=== PATIENT | male | born 1985 | race Caucasian/White ===

== ENCOUNTER 2018-01-30 11:10 | Inpatient (IN) ==
[2018-01-30] MEDS ORDERED: Isovue-370 500 ML INFUS..BTL IV ONE (11:22)
[2018-01-30] MEDS ORDERED: 0.9 % Sodium Chloride 1,000 ML ONE (11:26)
--- NOTE | 2018-01-30 11:28 | Emergency Department Note ---
Disposition Clinical Impression: Syncope due to orthostatic hypotension, Elevated CK Hypotension Qualifiers: Hypotension type: unspecified hypotension type Qualified Code(s): I95.9 - Hypotension, unspecified Disposition: Admitted As Inpatient Condition: Undetermined Referrals: NONE,PCP [Primary Care Provider] - Forms: ED Satisfaction Letter Time of Disposition: 15:28 General Adult HPI - General Chief complaint: ED Syncope Stated complaint: syncopal episode Time Seen by Provider: 01/30/18 11:15 Source: patient, other Mode of arrival: private vehicle Limitations: no limitations Nursing Notes Reviewed: Yes Vital Signs Reviewed: Yes - History of Present Illness HPI Narrative: 32-year-old male with history of hepatitis C, osteoporosis, IV drug abuse arrives to the emergency department after a syncopal episode this morning. The patient states that he recently started using IV methamphetamine with a dirty needle for roughly 4 days. The patient states that yesterday he started feeling very ill and actually syncopized for instructed on the ground. No LOC. The patient remembers the event. The patient was noted to be hypotensive this morning with a systolic blood pressure in the 60s and 50s. Upon arrival to our emergency the patient was 80s systolic. He admits to mild dyspnea that is not unusual for you and mild crampy RUQ abdominal pain that is related to his previous hepatitis. He denies any other complaints. Pain Scale: 6 - Related Data Home Medications Medication Instructions Recorded Confirmed Citalopram [CeleXA] 20 mg PO DAILY 02/20/17 01/30/18 Albuterol Neb [Proventil Neb] 2.5 mg IH QID PRN 01/30/18 01/30/18 Benzonatate [Benzonatate] 100 mg PO TID PRN 01/30/18 01/30/18 Fluticasone Propionate [Flovent 1 puff IH BID 01/30/18 01/30/18 Diskus] Naproxen [Naprosyn] 500 mg PO BID 01/30/18 01/30/18 Omeprazole [PriLOSEC] 20 mg PO DAILY 01/30/18 01/30/18 Previous Rx's Medication Instructions Recorded Albuterol Sulfate [Albuterol 2 puff IH Q6HR PRN #1 hfa.aer.ad 08/28/17 Inhaler] Allergies Allergy/AdvReac Type Severity Reaction Status Date / Time No Known Allergies Allergy Verified 01/10/18 13:02 All systems ED: reviewed and negative except as stated. Constitutional: Reports: chills, weakness. Denies: fever ENT ED: Denies: congestion Cardiovascular: Reports: dyspnea on exertion, syncope. Denies: chest pain, edema Respiratory: Reports: dyspnea Gastrointestinal: Reports: abdominal pain, nausea, diarrhea. Denies: vomiting, constipation, hematemesis, melena, hematochezia Genitourinary: Denies: urgency, dysuria Musculoskeletal: Reports: myalgia. Denies: back pain, neck pain, arthralgia Integumentary: Denies: rash, abrasion Neurological: Denies: headache, weakness, numbness, paresthesias, confusion Past Medical History - Past Medical History Attestation: Yes The following information was validated with the patient. Source: patient, old records reviewed, obtained from family Medical history: Reports: hepatitis, osteoporosis Psychiatric history: Reports: anxiety, depression - Social History Smoking Status: Former smoker Smokeless Tobacco Status: No Alcohol use: Reports: none Drug use: Reports: methamphetamine, IV Drug Use Physical Exam - General Limitations: no limitations General appearance: alert, in no apparent distress - Head Head exam: atraumatic, normocephalic, normal inspection - Eye Eye exam: Present: normal appearance, PERRL, EOMI - ENT ENT exam: normal exam, normal oropharynx, mucous membranes moist - Neck Neck exam: Present: normal inspection, full ROM, trachea midline - Chest Chest inspection: Present: normal inspection, symmetric chest wall rise - Respiratory Respiratory exam: Present: other (Coarse breath sounds) - Cardiovascular Cardiovascular exam: Present: regular rate, normal rhythm, normal heart sounds - Abdominal Exam Abdominal exam: Present: soft, tenderness (RUQ). Absent: distention, guarding, rebound, rigidity, Ortega's sign, Rovsing's sign, tenderness at McBurney's Point - Extremities Exam Extremities exam: Present: normal inspection, full ROM. Absent: tenderness, pedal edema - Neurological Exam Neurological exam: Present: alert, oriented X3 - Skin Skin exam: Present: warm, dry, intact, normal color Course - Reevaluation(s) Reevaluation #1: BP 106/54 Time: 14:05 Vital Signs Temperature 97.7 F 01/30/18 11:11 Pulse Rate 99 01/30/18 11:11 Respiratory Rate 16 04/15/18 11:11 Blood Pressure 80/51 01/30/18 11:11 O2 Sat by Pulse Oximetry 97 01/30/18 11:11 Temperature 97.7 F 01/30/18 11:11 Pulse Rate 99 01/30/18 11:11 Respiratory Rate 16 01/30/18 11:11 Blood Pressure 80/51 01/30/18 11:11 O2 Sat by Pulse Oximetry 100 01/30/18 11:20 Oxygen Delivery Oxygen Delivery Room Air Medical Decision Making - MDM Narrative Medical decision making narrative: Patient's workup in the emergency department demonstrates an elevated lactic acid. The patient was also found to be hypotensive in the 80s systolic. His blood pressure responded to 3 L of IV fluids with his last systolic blood pressure 106. The patient has been mentating appropriately entire time. The patient is demonstrated to have an acute kidney injury with a GFR of 12. This appears new. The patient has no other obvious signs of infection. He is a mild leukocytosis. He has been afebrile. The patient denies any other complaints at this time. He did have a CT scan of his abdomen and pelvis and as well as a VQ scan of his chest with concern for possible septic emboli. CT of the abdomen and pelvis reveals no acute abnormalities and VQ scan demonstrates low probability for emboli. Patient's chest x-ray demonstrates no acute process. The urinalysis is unremarkable. Patient's lab work reveals a leukocytosis, acute kidney injury. The patient's lactic acid was elevated at 2.8. He was administered 3 L of IV fluids. He states he is feeling better at this time. The patient states she has not been eating or drinking over the course the past few days. The patient does have an elevated creatinine kinase at this time. This is likely the etiology of the patient's acute kidney injury as well as elevation of lactic acid. Accepted by Dr. Amos. - Lab Data Lab results reviewed: Yes I reviewed the patient's lab results. Result diagrams: 01/30/18 11:26 01/30/18 11:26 Lab Results 01/30/18 01/30/18 01/30/18 Range/Units 11:20 11:26 11:26 WBC 12.1 H (4.3-11.1) K/mcL RBC 4.61 (4.19-5.50) M/mcL Hgb 14.1 (12.9-16.9) g/dL Hct 41.4 (37.5-50.1) % MCV 89.8 (83.0-100.0) fL MCH 30.6 (28.0-33.3) pg MCHC 34.1 (31.6-35.5) g/dL RDW 13.1 (11.5-14.5) % Plt Count 374 (140-400) K/mcL MPV 9.4 (9.4-12.4) fL Immature Gran % 1.3 (0-4) % Seg Neutrophils % 65.7 % Lymphocytes % 17.8 % Monocytes % 14.2 % Eosinophils % 0.8 % Basophils % 0.2 % Neutrophils # 8.0 (1.6-8.9) K/mcL Lymphocytes # 2.2 (0.6-4.6) K/mcL Monocytes # 1.7 H (0.0-1.3) K/mcL Eosinophils # 0.1 (0.0-0.6) K/mcL Basophils # 0.0 (0.0-0.2) K/mcL PT 11.4 (9.4-12.1) Seconds INR 1.1 APTT 25.1 L (26.0-36.0) Seconds Sodium 133 L (136-145) mEq/L Potassium 4.2 (3.5-5.1) mEq/L Chloride 98 (98-107) mEq/L Carbon Dioxide 20 L (23-29) mEq/L BUN 39 H (6-20) mg/dL Creatinine 5.53 H (0.70-1.30) mg/dL Est GFR ( Amer) 15 L (> 60) Est GFR (Non-Af Amer) 12 L (> 60) BUN/Creatinine Ratio 7 (6-26) Glucose 107 H (70-105) mg/dL Calculated Osmolality 286 (280-300) Lactic Acid (0.5-2.2) mmol/L Calcium 9.4 (8.6-10.3) mg/dL Magnesium 2.3 (1.6-2.6) mg/dL Total Bilirubin 0.7 (0.3-1.0) mg/dL Direct Bilirubin 0.2 (0.0-0.2) mg/dL Indirect Bilirubin 0.5 (0.0-1.2) mg/dL AST 49 H (13-39) Units/L ALT 115 H (7-52) Units/L Alkaline Phosphatase 132 H (34-104) Units/L Creatine Kinase 937 H (30-223) Units/L Troponin I < 0.03 (< 0.04) ng/mL Serum Total Protein 7.7 (6.4-8.9) g/dL Albumin 4.6 (3.5-5.7) g/dL Globulin 3.1 (2.4-3.5) g/dL Albumin/Globulin Ratio 1.5 (1.1-2.2) Urine Color (Yellow) Urine Clarity (Clear) Urine pH (5.0-8.0) pH Units Ur Specific [place] (1.010-1.025) Urine Protein (Neg-Trace) mg/dL Urine Glucose (UA) (Normal) mg/dL Urine Ketones (Negative) mg/dL Urine Blood (Negative) Urine Nitrite (Negative) Urine Bilirubin (Negative) Urine Urobilinogen (Normal) mg/dL Ur Leukocyte Esterase (Negative) Urine Microscopic RBC (0-3) per hpf Urine Microscopic WBC (0-3) per hpf Ur Squamous Epith Cells (None-Few) per lpf Urine Bacteria (None-Few) per hpf Ur Culture Indicated? (NO) 01/30/18 01/30/18 Range/Units 11:26 14:26 WBC (4.3-11.1) K/mcL RBC (4.19-5.50) M/mcL Hgb (12.9-16.9) g/dL Hct (37.5-50.1) % MCV (83.0-100.0) fL MCH (28.0-33.3) pg MCHC (31.6-35.5) g/dL RDW (11.5-14.5) % Plt Count (140-400) K/mcL MPV (9.4-12.4) fL Immature Gran % (0-4) % Seg Neutrophils % % Lymphocytes % % Monocytes % % Eosinophils % % Basophils % % Neutrophils # (1.6-8.9) K/mcL Lymphocytes # (0.6-4.6) K/mcL Monocytes # (0.0-1.3) K/mcL Eosinophils # (0.0-0.6) K/mcL Basophils # (0.0-0.2) K/mcL PT (9.4-12.1) Seconds INR APTT (26.0-36.0) Seconds Sodium (136-145) mEq/L Potassium (3.5-5.1) mEq/L Chloride (98-107) mEq/L Carbon Dioxide (23-29) mEq/L BUN (6-20) mg/dL Creatinine (0.70-1.30) mg/dL Est GFR ( Amer) (> 60) Est GFR (Non-Af Amer) (> 60) BUN/Creatinine Ratio (6-26) Glucose (70-105) mg/dL Calculated Osmolality (280-300) Lactic Acid 2.8 H (0.5-2.2) mmol/L Calcium (8.6-10.3) mg/dL Magnesium (1.6-2.6) mg/dL Total Bilirubin (0.3-1.0) mg/dL Direct Bilirubin (0.0-0.2) mg/dL Indirect Bilirubin (0.0-1.2) mg/dL AST (13-39) Units/L ALT (7-52) Units/L Alkaline Phosphatase (34-104) Units/L Creatine Kinase (30-223) Units/L Troponin I (< 0.04) ng/mL Serum Total Protein (6.4-8.9) g/dL Albumin (3.5-5.7) g/dL Globulin (2.4-3.5) g/dL Albumin/Globulin Ratio (1.1-2.2) Urine Color Yellow (Yellow) Urine Clarity Cloudy A (Clear) Urine pH 5.5 (5.0-8.0) pH Units Ur Specific [place] 1.016 (1.010-1.025) Urine Protein 30 H (Neg-Trace) mg/dL Urine Glucose (UA) Normal (Normal) mg/dL Urine Ketones Negative (Negative) mg/dL Urine Blood Moderate H (Negative) Urine Nitrite Negative (Negative) Urine Bilirubin Negative (Negative) Urine Urobilinogen Normal (Normal) mg/dL Ur Leukocyte Esterase Negative (Negative) Urine Microscopic RBC 3-5 H (0-3) per hpf Urine Microscopic WBC 5-15 H (0-3) per hpf Ur Squamous Epith Cells Many H (None-Few) per lpf Urine Bacteria None Seen (None-Few) per hpf Ur Culture Indicated? NO (NO) - Radiology Data Radiology results reviewed: Yes I reviewed the patient's radiology results. Chest X-Ray 01/30/18 11:22 IMPRESSION: No acute process. D/ / Juan Bernardo MD / Juan Bernardo MD Interpreting Provider: Juan Bernardo MD Head CT 01/30/18 11:24 IMPRESSION: No acute intracranial abnormality. D/ / Giovanni Fletcher MD / Giovanni Fletcher MD Interpreting Provider: Giovanni Fletcher MD Abdomen/Pelvis CT 01/30/18 12:20 IMPRESSION: No acute abnormality identified. No renal stones. D/ / eYvgeniy Pierson / Yevgeniy Pierson Interpreting Provider: Yevgeniy Pierson Pulmonary Perfusion Imaging 01/30/18 12:30 IMPRESSION: Low probability for pulmonary embolus. D/ / Juan Bernardo MD / Juan Bernardo MD Interpreting Provider: Juan Bernardo MD - EKG Data EKG #1 EKG attestation: Yes I reviewed and interpreted this EKG. EKG results narrative: Heart rate 89 bpm. Normal sinus rhythm. No ST elevation or ST depression noted. EKG similar in appearance to EKG from 2018. No acute changes noted.
[2018-01-30] MEDS: 0.9 % Sodium Chloride 1,000 ML IVC SCH ×4 (11:30→18:12)
[2018-01-30 11:37] LABS: Basophils % 0.2 %; Eosinophils # 0.1 K/mcL (0.0-0.6); Eosinophils % 0.8 %; Hematocrit 41.4 % (37.5-50.1); Hemoglobin 14.1 g/dL (12.9-16.9); Immature Granulocytes % 1.3 % (0-4); Lymphocytes # 2.2 K/mcL (0.6-4.6); Lymphocytes % 17.8 %; Mean Corpuscular HGB Conc 34.1 g/dL (31.6-35.5); Mean Corpuscular Hemoglobin 30.6 pg (28.0-33.3); Mean Corpuscular Volume 89.8 fL (83.0-100.0); Mean Platelet Volume 9.4 fL (9.4-12.4); Monocytes # 1.7 K/mcL (0.0-1.3); Monocytes % 14.2 %; Platelet Count 374 K/mcL (140-400); Red Blood Count 4.61 M/mcL (4.19-5.50); Red Cell Distribution Width 13.1 % (11.5-14.5); Segmented Neutrophils % 65.7 %
[2018-01-30 11:42] LABS: INR 1.1; Prothrombin Time 11.4 Seconds (9.4-12.1)
[2018-01-30 11:45] LABS: Activated Partial Thrombo Time 25.1 Seconds (26.0-36.0)
[2018-01-30 12:01] LABS: Troponin I < 0.03 ng/mL (< 0.04)
[2018-01-30 12:03] LABS: Alanine Aminotransferase 115 Units/L (7-52); Albumin 4.6 g/dL (3.5-5.7); Albumin/Globulin Ratio 1.5 (1.1-2.2); Alkaline Phosphatase 132 Units/L (34-104); Aspartate Amino Transferase 49 Units/L (13-39); BUN/Creatinine Ratio 7 (6-26); Bilirubin,Direct 0.2 mg/dL (0.0-0.2); Bilirubin,Indirect 0.5 mg/dL (0.0-1.2); Bilirubin,Total 0.7 mg/dL (0.3-1.0); Blood Urea Nitrogen 39 mg/dL (6-20); Calcium 9.4 mg/dL (8.6-10.3); Carbon Dioxide 20 mEq/L (23-29); Chloride 98 mEq/L (98-107); Globulin 3.1 g/dL (2.4-3.5); Glucose 107 mg/dL (70-105); Magnesium 2.3 mg/dL (1.6-2.6); Osmolality,Calculated 286 (280-300); Potassium 4.2 mEq/L (3.5-5.1); Sodium 133 mEq/L (136-145); Total Protein 7.7 g/dL (6.4-8.9); eGFR For African Americans 15 (> 60); eGFR For Non-African Americans 12 (> 60)
[2018-01-30] MEDS ORDERED: 0.9 % Sodium Chloride 1,000 ML IVC ONE (13:09)
--- NOTE | 2018-01-30 13:10 | Emergency Department Note ---
Disposition Clinical Impression: Syncope due to orthostatic hypotension, Elevated CK Hypotension Qualifiers: Hypotension type: unspecified hypotension type Qualified Code(s): I95.9 - Hypotension, unspecified Disposition: Admitted As Inpatient Condition: Undetermined General Adult HPI - General Chief complaint: ED Syncope Stated complaint: syncopal episode Time Seen by Provider: 01/30/18 11:15 Source: patient, other Mode of arrival: private vehicle Limitations: no limitations Nursing Notes Reviewed: Yes Vital Signs Reviewed: Yes - History of Present Illness Pain Scale: 6 - Related Data Home Medications Medication Instructions Recorded Confirmed Citalopram [CeleXA] 20 mg PO DAILY 02/20/17 01/30/18 Albuterol Neb [Proventil Neb] 2.5 mg IH QID PRN 01/30/18 01/30/18 Benzonatate [Benzonatate] 100 mg PO TID PRN 01/30/18 01/30/18 Fluticasone Propionate [Flovent 1 puff IH BID 01/30/18 01/30/18 Diskus] Naproxen [Naprosyn] 500 mg PO BID 01/30/18 01/30/18 Omeprazole [PriLOSEC] 20 mg PO DAILY 01/30/18 01/30/18 Previous Rx's Medication Instructions Recorded Albuterol Sulfate [Albuterol 2 puff IH Q6HR PRN #1 hfa.aer.ad 08/28/17 Inhaler] Allergies Allergy/AdvReac Type Severity Reaction Status Date / Time No Known Allergies Allergy Verified 01/10/18 13:02 Constitutional: Reports: chills, weakness. Denies: fever ENT ED: Denies: congestion Cardiovascular: Reports: dyspnea on exertion, syncope. Denies: chest pain, edema Respiratory: Reports: dyspnea Gastrointestinal: Reports: abdominal pain, nausea, diarrhea. Denies: vomiting, constipation, hematemesis, melena, hematochezia Genitourinary: Denies: urgency, dysuria Musculoskeletal: Reports: myalgia. Denies: back pain, neck pain, arthralgia Integumentary: Denies: rash, abrasion Neurological: Denies: headache, weakness, numbness, paresthesias, confusion Past Medical History - Past Medical History Medical history: Reports: hepatitis, osteoporosis Psychiatric history: Reports: anxiety, depression - Social History Smoking Status: Former smoker Smokeless Tobacco Status: No Alcohol use: Reports: none Drug use: Reports: methamphetamine, IV Drug Use Physical Exam - General Limitations: no limitations General appearance: alert, in no apparent distress Course Vital Signs Temperature 97.7 F 01/30/18 11:11 Pulse Rate 99 01/30/18 11:11 Respiratory Rate 16 01/30/18 11:11 Blood Pressure 80/51 01/30/18 11:11 O2 Sat by Pulse Oximetry 97 01/30/18 11:11 Temperature 97.8 F 01/30/18 23:18 Pulse Rate 87 01/30/18 23:18 Respiratory Rate 20 01/30/18 23:18 Blood Pressure 126/64 01/30/18 23:18 O2 Sat by Pulse Oximetry 96 01/30/18 23:18 Oxygen Delivery Oxygen Delivery Nasal Cannula Medical Decision Making - Lab Data Result diagrams: 01/30/18 11:26 01/30/18 16:11 Lab Results 01/30/18 01/30/18 01/30/18 Range/Units 11:20 11:26 11:26 WBC 12.1 H (4.3-11.1) K/mcL RBC 4.61 (4.19-5.50) M/mcL Hgb 14.1 (12.9-16.9) g/dL Hct 41.4 (37.5-50.1) % MCV 89.8 (83.0-100.0) fL MCH 30.6 (28.0-33.3) pg MCHC 34.1 (31.6-35.5) g/dL RDW 13.1 (11.5-14.5) % Plt Count 374 (140-400) K/mcL MPV 9.4 (9.4-12.4) fL Immature Gran % 1.3 (0-4) % Seg Neutrophils % 65.7 % Lymphocytes % 17.8 % Monocytes % 14.2 % Eosinophils % 0.8 % Basophils % 0.2 % Neutrophils # 8.0 (1.6-8.9) K/mcL Lymphocytes # 2.2 (0.6-4.6) K/mcL Monocytes # 1.7 H (0.0-1.3) K/mcL Eosinophils # 0.1 (0.0-0.6) K/mcL Basophils # 0.0 (0.0-0.2) K/mcL PT 11.4 (9.4-12.1) Seconds INR 1.1 APTT 25.1 L (26.0-36.0) Seconds Sodium 133 L (136-145) mEq/L Potassium 4.2 (3.5-5.1) mEq/L Chloride 98 (98-107) mEq/L Carbon Dioxide 20 L (23-29) mEq/L BUN 39 H (6-20) mg/dL Creatinine 5.53 H (0.70-1.30) mg/dL Est GFR ( Amer) 15 L (> 60) Est GFR (Non-Af Amer) 12 L (> 60) BUN/Creatinine Ratio 7 (6-26) Glucose 107 H (70-105) mg/dL Calculated Osmolality 286 (280-300) Lactic Acid (0.5-2.2) mmol/L Calcium 9.4 (8.6-10.3) mg/dL Magnesium 2.3 (1.6-2.6) mg/dL Total Bilirubin 0.7 (0.3-1.0) mg/dL Direct Bilirubin 0.2 (0.0-0.2) mg/dL Indirect Bilirubin 0.5 (0.0-1.2) mg/dL AST 49 H (13-39) Units/L ALT 115 H (7-52) Units/L Alkaline Phosphatase 132 H (34-104) Units/L Creatine Kinase 937 H (30-223) Units/L Troponin I < 0.03 (< 0.04) ng/mL Serum Total Protein 7.7 (6.4-8.9) g/dL Albumin 4.6 (3.5-5.7) g/dL Globulin 3.1 (2.4-3.5) g/dL Albumin/Globulin Ratio 1.5 (1.1-2.2) Urine Color (Yellow) Urine Clarity (Clear) Urine pH (5.0-8.0) pH Units Ur Specific [place] (1.010-1.025) Urine Protein (Neg-Trace) mg/dL Urine Glucose (UA) (Normal) mg/dL Urine Ketones (Negative) mg/dL Urine Blood (Negative) Urine Nitrite (Negative) Urine Bilirubin (Negative) Urine Urobilinogen (Normal) mg/dL Ur Leukocyte Esterase (Negative) Urine Microscopic RBC (0-3) per hpf Urine Microscopic WBC (0-3) per hpf Ur Squamous Epith Cells (None-Few) per lpf Urine Bacteria (None-Few) per hpf Ur Culture Indicated? (NO) 01/30/18 01/30/18 Range/Units 11:26 14:26 WBC (4.3-11.1) K/mcL RBC (4.19-5.50) M/mcL Hgb (12.9-16.9) g/dL Hct (37.5-50.1) % MCV (83.0-100.0) fL MCH (28.0-33.3) pg MCHC (31.6-35.5) g/dL RDW (11.5-14.5) % Plt Count (140-400) K/mcL MPV (9.4-12.4) fL Immature Gran % (0-4) % Seg Neutrophils % % Lymphocytes % % Monocytes % % Eosinophils % % Basophils % % Neutrophils # (1.6-8.9) K/mcL Lymphocytes # (0.6-4.6) K/mcL Monocytes # (0.0-1.3) K/mcL Eosinophils # (0.0-0.6) K/mcL Basophils # (0.0-0.2) K/mcL PT (9.4-12.1) Seconds INR APTT (26.0-36.0) Seconds Sodium (136-145) mEq/L Potassium (3.5-5.1) mEq/L Chloride (98-107) mEq/L Carbon Dioxide (23-29) mEq/L BUN (6-20) mg/dL Creatinine (0.70-1.30) mg/dL Est GFR ( Amer) (> 60) Est GFR (Non-Af Amer) (> 60) BUN/Creatinine Ratio (6-26) Glucose (70-105) mg/dL Calculated Osmolality (280-300) Lactic Acid 2.8 H (0.5-2.2) mmol/L Calcium (8.6-10.3) mg/dL Magnesium (1.6-2.6) mg/dL Total Bilirubin (0.3-1.0) mg/dL Direct Bilirubin (0.0-0.2) mg/dL Indirect Bilirubin (0.0-1.2) mg/dL AST (13-39) Units/L ALT (7-52) Units/L Alkaline Phosphatase (34-104) Units/L Creatine Kinase (30-223) Units/L Troponin I (< 0.04) ng/mL Serum Total Protein (6.4-8.9) g/dL Albumin (3.5-5.7) g/dL Globulin (2.4-3.5) g/dL Albumin/Globulin Ratio (1.1-2.2) Urine Color Yellow (Yellow) Urine Clarity Cloudy A (Clear) Urine pH 5.5 (5.0-8.0) pH Units Ur Specific [place] 1.016 (1.010-1.025) Urine Protein 30 H (Neg-Trace) mg/dL Urine Glucose (UA) Normal (Normal) mg/dL Urine Ketones Negative (Negative) mg/dL Urine Blood Moderate H (Negative) Urine Nitrite Negative (Negative) Urine Bilirubin Negative (Negative) Urine Urobilinogen Normal (Normal) mg/dL Ur Leukocyte Esterase Negative (Negative) Urine Microscopic RBC 3-5 H (0-3) per hpf Urine Microscopic WBC 5-15 H (0-3) per hpf Ur Squamous Epith Cells Many H (None-Few) per lpf Urine Bacteria None Seen (None-Few) per hpf Ur Culture Indicated? NO (NO) Attestation Statement - Attestation Attestation: I, Víctor Johnson, examined this patient and my medical decision-making was reviewed with the EVALUATION SPECIALIST/PA/Advanced Practice Nurse/Resident Physician. I agree with the documented findings, disposition and treatment plan as described except to the extent set forth below. 32-year-old male presents emergency Department with concerns of lightheadedness , a syncopal episode, and weakness and fatigue. Patient has a history of bacteremia secondary to IV drug use that cause similar symptoms where he was admitted to [facility] with IV antibiotics multiple years ago. Patient' s significant other states that the patient used IV methamphetamines with a "dirty needle" a few days ago. He took trazodone last night in an attempt to get some sleep. In the initial evaluation he is hypotensive and tachycardic. Patient is alert and interactive with the exam and denies significant pain. We will evaluate for sources of sepsis. Laboratory evaluation and imaging pending at this time. Patient will likely be admitted to the hospital for further care and evaluation.
[2018-01-30 13:28] LABS: Creatine Kinase 937 Units/L (30-223)
[2018-01-30 14:34] LABS: Bilirubin,Urine Negative (Negative); Blood,Urine Moderate (Negative); Clarity,Urine Cloudy (Clear); Color,Urine Yellow (Yellow); Glucose,Urine (UA) Normal (Normal); Ketones,Urine Negative (Negative); Leukocyte Esterase,Urine Negative (Negative); Nitrite,Urine Negative (Negative); PH,Urine 5.5 pH Units (5.0-8.0); Protein,Urine 30 mg/dL (Neg-Trace); Specific Gravity,Urine 1.016 (1.010-1.025); Urobilinogen,Urine Normal (Normal)
[2018-01-30 14:37] LABS: Bacteria,Urine None Seen per hpf (None-Few); Squamous Epithelial Cell,Urine Many per lpf (None-Few)
[2018-01-30] MEDS ORDERED: Benzonatate 100 MG CAPSULE PO PRN (16:43)
[2018-01-30 16:44] LABS: Calcium 8.3 mg/dL (8.6-10.3); Potassium 3.8 mEq/L (3.5-5.1)
[2018-01-30] MEDS ORDERED: Naloxone 0.4 MG/ML INJ IVP PRN (16:44)
--- NOTE | 2018-01-30 16:55 | Internal Med History&Physical ---
Date of Encounter: 01/30/18 Time of Encounter: 16:55 Internal Medicine - H&P: HPI Chief complaint: altered mental status. Admitted From: Emergency Dept Plans for Post Hospital Care: Home History of present illness: Mr. Tsai is a 32 year old male who has been on medical history of a hepatitis C , intravenous drug abuse. Patient was at home, and he saw fainting brightness in front of his eyes after 8 hours of " deep seep". Patient claims that after he saw that fainting brightness, he had an syncopal episode and he fainted. For this reason score was called and upon arrival it was noted that patient's blood pressure was in 50s. Patient was started on IV fluid and was transferred to emergency room for further evaluation. Patient claims that he took a methamphetamine with his fiancee on late night early Wednesday morning and he was completely zonked out after that for next 48 hours. Patient claims that he does not use clean needles. In the emergency department patient was evaluated. Basic labs were drawn. Patient's blood pressure was in 80s. Patient was started on IV fluids. Workup in the emergency room: Patient was evaluated in the emergency room as above. Noted that patient's creatinine was 5 along with normal potassium and elevated creatinine kinase to 930. Also noted that patient has a hematuria and has many squamous cells in his urinalysis. Reason for admission: Methamphetamine induced nephrotoxicity in a patient who is known to have a hepatitis C and background history of for intravenous drug abuse. Past Med Surg Social Fam HX - Past Medical History Medical history: hepatitis, osteoporosis Psychiatric history: anxiety, depression - Social History Smoking Status: Former smoker Smokeless Tobacco Status: No Alcohol use: none Drug use: methamphetamine, IV Drug Use Internal Medicine - H&P: Meds Citalopram [CeleXA] 20 mg PO DAILY 02/20/17 [History] Albuterol Sulfate [Albuterol Inhaler] 2 puff IH Q6HR PRN #1 hfa.[email or web address] 08/28/17 [Rx] Albuterol Neb [Proventil Neb] 2.5 mg IH QID PRN 01/30/18 [History] Benzonatate [Benzonatate] 100 mg PO TID PRN 01/30/18 [History] Fluticasone Propionate [Flovent Diskus] 1 puff IH BID 01/30/18 [History] Naproxen [Naprosyn] 500 mg PO BID 01/30/18 [History] Omeprazole [PriLOSEC] 20 mg PO DAILY 01/30/18 [History] 3 Allergy/AdvReac Type Severity Reaction Status Date / Time No Known Allergies Allergy Verified 01/10/18 13:02 All Systems PM: A 10-system review of systems was performed and is negative for pertinent findings except as documented above in the HPI. - Constitutional Constitutional: excessive sweating, lethargy, malaise, no chills, no fever(s), no night sweats - EENT Eyes: no change in vision, no discharge, no pain, no photophobia Ears: no ear discharge, no ear pain, no tinnitus Nose, mouth and throat: no dysphagia, no nasal discharge, no neck pain, no sore throat - Cardiovascular Cardiovascular ROS IM: diaphoresis, dyspnea, no chest pain, no lightheadedness, no palpitations, no syncope - Respiratory Respiratory: no cough, no dyspnea, no wheezing, no excessive phlegm production - Gastrointestinal Gastrointestinal: no abdominal pain, no diarrhea, no hematemesis, no hematochezia, no melena, no nausea, no vomiting - Musculoskeletal Musculoskeletal ROS IM: no numbness, no tingling - Integumentary Integumentary IM: no rash, no unusual bruising - Neurological Neurological ROS: abnormal gait, disequilibrium, dizziness, no confusion, no convulsions, no focal weakness, no numbness, no tingling, no tremor(s) - Hematologic/Lymphatic Hematologic/Lymphatic: no easy bruising - Constitutional Vitals: Temp Pulse Resp BP Pulse Ox 97.7 F 77 18 106/51 99 01/30/18 11:11 01/30/18 15:34 01/30/18 15:34 01/30/18 15:34 01/30/18 15:34 General appearance: Present: A&O X 3, pleasant, no acute distress, answers questions appropriately - Head Head exam: Present: atraumatic, normocephalic - Eye Eye exam: Present: PERRL, conjuntiva pink, sclera anicteric Pupils: Present: PERRL - Neck Neck exam general surgery: Present: supple, trachea midline. Absent: lymphadenopathy - Respiratory Respiratory exam: Present: CTAB. Absent: accessory muscle use, rales, rhonchi, wheezes - Cardiovascular Cardiovascular exam: Present: RRR, +S1, +S2. Absent: diastolic murmur, gallop, rubs, systolic murmur - GI/Abdominal GI/Abdominal exam: Present: normal bowel sounds, soft, no peritoneal signs. Absent: distended, tenderness - Extremities Exam Extremities exam: Present: warm, radial pulses palpable and symmetrical. Absent : calf tenderness, cyanotic, pedal edema Additional comments: Patient has a IV drug injection marked on the left anti cubital fossa. - Neurological Exam Neurological exam: Present: CN II-XII intact, oriented X3, no focal deficits. Absent: pronater drift, facial droop, speech deficit - Skin Skin exam: Present: dry, intact Internal Med - H&P Results - Labs CBC & Chem 7: 01/30/18 11:26 01/30/18 16:11 Labs: BMP 01/30/18 16:11 Sodium 136 Potassium 3.8 Chloride 104 Carbon Dioxide 21 L BUN 37 H Creatinine 4.98 H Glucose 107 H Calcium 8.3 L - Assessment and plan (1) Syncope due to orthostatic hypotension Current Visit: Yes Status: Acute Assessment and plan: Patient had a syncope due to was 0 whether/orthostatic hypotension. The etiology for was available/orthostatic hypertension: Likely secondary to methamphetamine use. Noted that patient's creatinine is elevated but responding to IV fluid management. Patient is alert and oriented. bedside echocardiogram was done. we did not appreciate any rv strain/endocarditis. please remember that this is a bedside ago and not a formal ECHO. plan: admit in stepdown unit. iv fluids normal saline 125 ml per hour. strict intake output. nephrology consult (i personally spoke with manager technical services). i examined this patient in the emergency room #11. plan of care discussed with the patient at length. patient verbalized understanding. (2) Acute kidney injury Current Visit: Yes Status: Acute Assessment and plan: Noted that patient has a acute kidney injury. Etiology for acute kidney injury is likely underlying methamphetamine use/ hypotension ( shock kidneys). At present patient is on 125 mL of normal saline/hr. We will monitor BMP every 8 hours. Nephrology was on the board. At this point creatinine shows downward trending. Potassium is within normal limit. (3) Shock liver Current Visit: Yes Status: Acute Assessment and plan: Noted that patient has a elevated liver enzymes. This is likely secondary to shock liver. Plan: Continue fluid management. A repeat liver enzyme test tomorrow morning. Close monitoring of the LFTs (4) Elevated CK Current Visit: Yes Status: Acute Assessment and plan: Patient had a fall and he was for unknown duration on the floor. Presently his CKs 937. Patient patient received so far 2 L of IV normal saline. Plan: We will continue normal saline 125 mL per hour. Monitor his CK every 8 hourly. Nephrology on the board. We will follow the recommendations from nephrology. (5) DVT prophylaxis Current Visit: Yes Status: Acute Assessment and plan: Heparin Medical decision making: This patient has a moderate to severe risk of worsening in spite of being on appropriate medication due to the underlying complex medical conditions. - Time Spent With Patient Total time spent is greater than 50% in coordination of care (as documented) at patient's floor/unit and/or counseling patient:
[2018-01-30] MEDS: *HR* Heparin 5,000 UNIT/ML VIAL SQ SCH (18:28)
[2018-01-30 18:42] LABS: Amphetamine Screen,Urine Negative ng/mL (Cutoff=1000); Barbiturate Screen,Urine Negative ng/mL (Cutoff=200); Benzodiazepines Screen,Urine Negative ng/mL (Cutoff=200); Cannabinoid Screen,Urine Positive ng/mL (Cutoff = 50); Cocaine Screen,Urine Negative ng/mL (Cutoff= 300); Opiate Screen,Urine Negative ng/mL (Cutoff=300); Phencyclidine Screen,Urine Negative ng/mL (Cutoff=25)
[2018-01-31 01:08] LABS: Activated Partial Thrombo Time 23.9 Seconds (26.0-36.0)
[2018-01-31 01:09] LABS: Albumin 3.7 g/dL (3.5-5.7); Albumin/Globulin Ratio 1.3 (1.1-2.2); Bilirubin,Total 0.5 mg/dL (0.3-1.0); Calcium 8.6 mg/dL (8.6-10.3); Globulin 2.9 g/dL (2.4-3.5); Magnesium 2.2 mg/dL (1.6-2.6); Phosphorous 4.4 mg/dL (2.7-4.5); Potassium 4.7 mEq/L (3.5-5.1); Total Protein 6.6 g/dL (6.4-8.9)
[2018-01-31] MEDS: 0.9 % Sodium Chloride 1,000 ML IVC SCH ×3 (03:21→21:00)
[2018-01-31] MEDS: *HR* Heparin 5,000 UNIT/ML VIAL SQ SCH ×2 (06:01→17:49)
[2018-01-31 09:19] LABS: Potassium 5.1 mEq/L (3.5-5.1)
[2018-01-31] MEDS ORDERED: 0.9 % Sodium Chloride 1,000 ML ONE (12:02)
[2018-01-31] MEDS ORDERED: 0.9 % Sodium Chloride 250 ML IVC ONE (12:03)
[2018-01-31] MEDS: Albuterol 2.5 MG/3 ML NEBULIZER IH PRN ×2 (12:53→18:55)
--- NOTE | 2018-01-31 13:06 | Nephrology Consult Note ---
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 He was apparently found profoundly hypotensive in the 50s systolic. He was also allegedly down and out for approx. 48hrs prior to syncope. SCr noted at 5.53, GFR 12 on presenttation, baseline 0.88, GFR >60 as of 2 months ago. Pt seen and examined today with complaint of rib pain this am. SCr already improving after aggressive volume repletion overnight. Past Med Surg Social Fam HX - Past Medical History Medical history: hepatitis, osteoporosis Psychiatric history: anxiety, depression - Social History Smoking Status: Former smoker Smokeless Tobacco Status: No Alcohol use: none Drug use: methamphetamine, IV Drug Use - Family History Father History Unknown: Yes Mother History Unknown: Yes Medications and Allergies Citalopram [CeleXA] 20 mg PO DAILY 02/20/17 [History] Albuterol Sulfate [Albuterol Inhaler] 2 puff IH Q6HR PRN #1 hfa.aer.ad 08/28/17 [Rx] Albuterol Neb [Proventil Neb] 2.5 mg IH QID PRN 01/30/18 [History] Benzonatate [Benzonatate] 100 mg PO TID PRN 01/30/18 [History] Fluticasone Propionate [Flovent Diskus] 1 puff IH BID 01/30/18 [History] Naproxen [Naprosyn] 500 mg PO BID 01/30/18 [History] Omeprazole [PriLOSEC] 20 mg PO DAILY 01/30/18 [History] 3 Allergy/AdvReac Type Severity Reaction Status Date / Time No Known Allergies Allergy Verified 01/10/18 13:02 Review of Systems All Systems: reviewed and no additional remarkable complaints except as stated ( 10 systems reviewed) Exam - Vital Signs Vital signs: Initial Vital Signs Temp Pulse Resp BP Pulse Ox 97.7 F 99 16 80/51 97 01/30/18 11:11 01/30/18 11:11 01/30/18 11:11 01/30/18 11:11 01/30/18 11:11 Vital Signs - Last 8 Hours Temp Pulse Resp BP Pulse Ox 01/31/18 11:09 98.0 F 81 17 123/68 94 01/31/18 10:30 99 18 97 01/31/18 07:43 93 01/31/18 07:40 88 20 123/68 96 01/31/18 07:10 98.0 F 72 16 123/68 95 Intake and Output 01/30/18 01/31/18 01/31/18 23:59 07:59 15:59 Intake Total 1750 / 1750 2130 / 2130 480 / 480 Output Total 2800 / 2800 1275 / 1275 Balance -1050 / -1050 855 / 855 480 / 480 Intake: IV Fluids 1000 / 1000 1000 / 1000 0.9 % Sodium Chloride 1,000 ML 1000 / 1000 1000 / 1000 @ 125 mls/hr IVC .Q8H [facility] Rx#: [id number] Oral 750 / 750 1130 / 1130 480 / 480 Output: Urine 2800 / 2800 1275 / 1275 Other: Meal Breakfast Percent of Meal Consumed 95% # Voids 1 Weight 121.563 kg 123.6 kg Blood Glucose* 122 97 91 Patient Weight 01/31/18 23:59 Weight 123.6 kg - General Appearance General appearance: well-developed, well-nourished EENT: ATNC, mucous membranes moist Neck: no JVD, supple Respiratory: clear Cardiology: no edema, normal S1, normal S2 Gastrointestinal: no tenderness, no guarding, obese Integumentary: warm and dry Neurologic: no focal deficit Musculoskeletal: no deformities Psychiatric: mood/affect appropriate Results - Lab Results 01/30/18 11:26 01/31/18 16:57 Most recent lab results Calcium 9.0 mg/dL (8.6-10.3) 01/31/18 08:51 Phosphorus 4.4 mg/dL (2.7-4.5) 01/31/18 00:28 Magnesium 2.2 mg/dL (1.6-2.6) 01/31/18 00:28 Consult Discharge Plan - Plan Referrals: Juan Antonio Luna DO [Primary Care Provider] - 02/08/18 2:00 pm
[2018-01-31] MEDS: Acetaminophen 325 MG TABLET PO PRN (13:39)
[2018-01-31 17:30] LABS: BUN/Creatinine Ratio 16 (6-26); Blood Urea Nitrogen 26 mg/dL (6-20); Calcium 9.3 mg/dL (8.6-10.3); Carbon Dioxide 23 mEq/L (23-29); Chloride 106 mEq/L (98-107); Creatine Kinase 489 Units/L (30-223); Glucose 93 mg/dL (70-105); Osmolality,Calculated 284 (280-300); Potassium 5.1 mEq/L (3.5-5.1); Sodium 135 mEq/L (136-145); eGFR For African Americans > 60 (> 60); eGFR For Non-African Americans 51 (> 60)
--- NOTE | 2018-01-31 19:53 | Internal Med Progress Note ---
Date of Encounter: 01/31/18 Time of Encounter: 11:00 - Assessment and plan (1) Acute kidney injury Current Visit: Yes Status: Acute Assessment and plan: Patient's renal failure improving with IV fluids Nephrology following and suspects acute renal failure secondary to hypertension due to methamphetamine use Continue IV fluids Nephrology following and appreciate recommendations (2) Elevated CK Current Visit: Yes Status: Acute Assessment and plan: Patient had a fall and he was for unknown duration on the floor. Creatinine kinase decreasing with IV fluids. Continue current management (3) DVT prophylaxis Current Visit: Yes Status: Acute Assessment and plan: Subcutaneous heparin - Time Spent With Patient Total time spent is greater than 50% in coordination of care (as documented) at patient's floor/unit and/or counseling patient: - Subjective Interval history: Patient with acute renal failure after using methamphetamine; suspect renal failure secondary to hypotension Creatinine improving on IV fluids and nephrology following - Constitutional Vitals: Temp Pulse Resp BP Pulse Ox 98.0 F 81 19 125/65 95 01/31/18 18:46 01/31/18 18:46 01/31/18 18:46 01/31/18 18:46 01/31/18 18:46 General appearance: Present: A&O X 3, pleasant, no acute distress, answers questions appropriately - Respiratory Respiratory exam: Present: CTAB. Absent: accessory muscle use, rales, rhonchi, wheezes - Cardiovascular Cardiovascular exam: Present: RRR, +S1, +S2. Absent: diastolic murmur, gallop, rubs, systolic murmur Internal Medicine: Result - Labs CBC & Chem 7: 01/30/18 11:26 01/31/18 16:57 Labs: BMP 01/31/18 01/31/18 01/31/18 00:28 00:28 08:51 Sodium 136 137 135 L Potassium 4.7 4.7 5.1 Chloride 108 H 109 H 110 H Carbon Dioxide 21 L 22 L 24 BUN 33 H 31 H 26 H Creatinine 3.11 H 3.08 H 1.91 H Glucose 92 90 107 H Calcium 8.6 8.6 9.0 01/31/18 16:57 Sodium 135 L Potassium 5.1 Chloride 106 Carbon Dioxide 23 BUN 26 H Creatinine 1.60 H Glucose 93 Calcium 9.3 Liver Function 01/31/18 Range/Units 00:28 Total Bilirubin 0.5 (0.3-1.0) mg/dL AST 40 H (13-39) Units/L ALT 89 H (7-52) Units/L Alkaline Phosphatase 105 H (34-104) Units/L Albumin 3.7 (3.5-5.7) g/dL - ABG Interpretation ABG results: PT/INR, D-dimer PT 11.0 Seconds (9.4-12.1) 01/31/18 00:28 - Impressions Impressions Echocardiogram 01/30/18 16:52 Impressions: LVEF 60-65%. Normal LV chamber size, wall thickness and function. Normal left ventricular diastolic function. Normal right ventricular structure and function. No evidence of pulmonary hypertension. No obvious significant valvular dysfunction. No obvious vegetations visualized. Consider HALEY if clinically indicated. Left Ventricular Wall Motion: Rest Echo Findings All wall segments showed normal motion. Findings: Study Quality * Technically sub-optimal due to poor echocardiographic windows. ECG Findings * Normal sinus rhythm. Left Ventricle * LVEF 60-65%. * Normal LV chamber size, wall thickness and function. * Normal left ventricular diastolic function. Right Ventricle * Normal right ventricular structure and function. Left Atrium * Normal left atrial size. Right Atrium * Normal right atrial size. Interatrial Septum * Interatrial septum not well evaluated. Aortic Valve * Aortic valve not well visualized. * No aortic regurgitation. * No aortic stenosis. Mitral Valve * Grossly normal mitral valve structure and function. * No mitral regurgitation. * No mitral stenosis. Tricuspid Valve * Grossly normal tricuspid valve structure and function. * Trace tricuspid regurgitation. * No evidence of pulmonary hypertension. Pulmonic Valve * Normal pulmonic valve structure and function. * No pulmonic regurgitation. Aorta * Normally sized aortic root. Pericardium * The pericardium appears normal. IVC * Normal IVC dimensions and inspiratory collapse. Pulmonary Artery * Normal visualized portions of the main pulmonary artery. Consult Discharge Plan - Plan Referrals: Juan Antonio Luna DO [Primary Care Provider] - 02/08/18 2:00 pm
[2018-02-01] MEDS: 0.9 % Sodium Chloride 1,000 ML IVC SCH (04:45)
[2018-02-01] MEDS: *HR* Heparin 5,000 UNIT/ML VIAL SQ SCH (05:37)
[2018-02-01 06:43] LABS: Basophils # 0.1 K/mcL (0.0-0.2); Basophils % 0.9 %; Eosinophils # 0.1 K/mcL (0.0-0.6); Eosinophils % 2.2 %; Hemoglobin 12.8 g/dL (12.9-16.9); Immature Granulocytes % 0.7 % (0-4); Lymphocytes # 1.8 K/mcL (0.6-4.6); Mean Corpuscular HGB Conc 32.8 g/dL (31.6-35.5); Mean Corpuscular Hemoglobin 29.7 pg (28.0-33.3); Mean Corpuscular Volume 90.5 fL (83.0-100.0); Mean Platelet Volume 9.4 fL (9.4-12.4); Monocytes # 0.7 K/mcL (0.0-1.3); Monocytes % 12.7 %; Neutrophils # 2.7 K/mcL (1.6-8.9); Platelet Count 266 K/mcL (140-400); Red Blood Count 4.31 M/mcL (4.19-5.50); Red Cell Distribution Width 12.7 % (11.5-14.5); Segmented Neutrophils % 49.5 %
[2018-02-01 07:09] LABS: BUN/Creatinine Ratio 19 (6-26); Blood Urea Nitrogen 25 mg/dL (6-20); Calcium 9.5 mg/dL (8.6-10.3); Carbon Dioxide 23 mEq/L (23-29); Chloride 107 mEq/L (98-107); Glucose 96 mg/dL (70-105); Osmolality,Calculated 282 (280-300); Potassium 5.1 mEq/L (3.5-5.1); Sodium 134 mEq/L (136-145); eGFR For African Americans > 60 (> 60); eGFR For Non-African Americans > 60 (> 60)
[2018-02-01 07:57] VITALS: BP 138/76
[2018-02-01] MEDS: Acetaminophen 325 MG TABLET PO PRN (10:35)
--- NOTE | 2018-02-01 13:05 | Discharge Summary ---
<Gerhard Garcia - Last Filed: 02/01/18 13:03> Date of Encounter: 02/01/18 - Discharge Diagnosis (1) Elevated CK Status: Acute (2) Acute kidney injury Status: Acute (3) DVT prophylaxis Status: Acute Hospital course: Mr. Tsai is a 32 year old male - Time Spent with Patient Total time spent providing and/or coordinating discharge services: - Discharge Medications Home Medications: Citalopram [CeleXA] 20 mg PO DAILY 02/20/17 [History] Albuterol Sulfate [Albuterol Inhaler] 2 puff IH Q6HR PRN #1 hfa.aer.ad 08/28/17 [Rx] Albuterol Neb [Proventil Neb] 2.5 mg IH QID PRN 01/30/18 [History] Benzonatate 100 mg PO TID PRN 01/30/18 [History] Fluticasone Propionate [Flovent Diskus] 1 puff IH BID 01/30/18 [History] Naproxen [Naprosyn] 500 mg PO BID 01/30/18 [History] Omeprazole [PriLOSEC] 20 mg PO DAILY 01/30/18 [History] Allergies/Adverse Reactions: 3 Allergy/AdvReac Type Severity Reaction Status Date / Time No Known Allergies Allergy Verified 01/10/18 13:02 Date of admission: 01/30/18 16:10 Primary care physician: Juan Antonio Luna DO Consults: 01/30/18 16:49 Consult to Nephrology [CONS] Routine Consulting Provider: Kidney Mitzi/PEGGY/GORDON/POPPY Reason for Consult: ? Meth induced Nephrotoxicity Call Completed: Yes 02/01/18 11:26 Consult to Building Services Supervisor [CONS] Routine Reason for SW Consult: Substance abuse - Constitutional Vitals: Temp Pulse Resp BP Pulse Ox 97.6 F 84 18 138/76 93 02/01/18 07:54 02/01/18 07:54 02/01/18 07:54 02/01/18 07:54 02/01/18 07:54 General appearance: Present: A&O X 3, pleasant, no acute distress, answers questions appropriately - Patient Status Functional capacity at discharge: independent ambulation Overall status at discharge: patient is back to baseline - Discharge Instructions Instructions: Acute Kidney Injury (DC), Syncope (DC), Methamphetamine Abuse (DC ) Follow Up With: Juan Antonio Luna DO [Primary Care Provider] - 02/08/18 2:00 pm <RadhaRamo - Last Filed: 02/01/18 15:20> Date of Encounter: 02/01/18 Time of Encounter: 15:13 - Discharge Diagnosis (1) Acute kidney injury Priority: Primary Status: Resolved (2) Elevated CK Priority: Secondary Status: Resolved (3) Syncope due to orthostatic hypotension Priority: Secondary Status: Resolved Hospital course: Mr. Tsai is a 32 year old male who has been on medical history of a hepatitis C , intravenous drug abuse. Patient was at home, and he saw fainting brightness in front of his eyes after 8 hours of " deep seep". Patient claims that after he saw that fainting brightness, he had an syncopal episode and he fainted. For this reason score was called and upon arrival it was noted that patient's blood pressure was in 50s. Patient claims that he took a methamphetamine with his fiancee on late night early Wednesday morning and he was completely zonked out after that for next 48 hours. Patient claims that he does not use clean needles. In the emergency department patient was evaluated. Basic labs were drawn. Patient's blood pressure was in 80s. Patient was started on IV fluids. Workup in the emergency room: Patient was evaluated in the emergency room as above. Noted that patient's creatinine was 5 along with normal potassium and elevated creatinine kinase to 930. Also noted that patient has a hematuria and has many squamous cells in his urinalysis. Reason for admission: Methamphetamine induced nephrotoxicity in a patient who is known to have a hepatitis C and background history of for intravenous drug abuse. patient Cr improved with IVF, BP is normal on discharge, he has been tolerating diet and walking in the room. discharge on stable condition Discharge discussed with: patient Time spent discussing smoking cessation with patient: 3 to 10 minutes - Time Spent with Patient Total time spent providing and/or coordinating discharge services: Less than 30 minutes Date of admission: 01/30/18 16:10 Primary care physician: Juan Antonio Luna DO Consults: 01/30/18 16:49 Consult to Nephrology [CONS] Routine Consulting Provider: Kidney Mitzi/PEGGY/GORDON/POPPY Reason for Consult: ? Meth induced Nephrotoxicity Call Completed: Yes 02/01/18 11:26 Consult to Building Services Supervisor [CONS] Routine Reason for Consult: Substance abuse Discharging clinician: Ramo Garcia Anticipated date of discharge: 02/01/18 - Constitutional Vitals: Temp Pulse Resp BP Pulse Ox 97.6 F 84 18 138/76 93 02/01/18 07:54 02/01/18 07:54 02/01/18 07:54 02/01/18 07:54 02/01/18 07:54 - Head Head exam: Present: atraumatic, normocephalic - Eye Eye exam: Present: PERRL, conjuntiva pink, sclera anicteric Pupils: Present: PERRL - Neck Neck exam general surgery: Present: supple, trachea midline. Absent: lymphadenopathy - Respiratory Respiratory exam: Present: CTAB. Absent: accessory muscle use, rales, rhonchi, wheezes - Cardiovascular Cardiovascular exam: Present: RRR, +S1, +S2. Absent: diastolic murmur, gallop, rubs, systolic murmur - GI/Abdominal GI/Abdominal exam: Present: normal bowel sounds, soft, no peritoneal signs. Absent: distended, tenderness - Extremities Exam Extremities exam: Present: warm, radial pulses palpable and symmetrical. Absent : calf tenderness, cyanotic, pedal edema - Neurological Exam Neurological exam: Present: CN II-XII intact, oriented X3, no focal deficits. Absent: pronater drift, facial droop, speech deficit - Skin Skin exam: Present: dry, intact - Patient Status Functional capacity at discharge: independent ambulation Overall status at discharge: patient is back to baseline
--- NOTE | 2018-02-04 11:58 | Electrocardiograph Report ---
[place] [id number] Test Date: 2018-01-30 Pat Name: Stef Tsai Department: 102 Room: [facility] Gender: M Chinese Medicine Practitioner: : 1985 Requested By: Luis More Order Number: [id number] Reading MD: Jean-Pierre Alexis Measurements Intervals [place] Rate: 89 P: 39 IN: 124 QRS: 21 QRSD: 104 T: 27 QT: 355 QTc: 401 Interpretive Statements SINUS RHYTHM POSSIBLE INFERIOR MYOCARDIAL INFARCTION, PROBABLY OLD Electronically Signed On 02-04-2018 11:56:38 EDT by Jean-Pierre Alexis
== END 2018-02-01 13:12 | disposition home or self-care (01) | DRG 469 ==
LOC: EMEROO 11:10 → 2NENU 16:10 → SUATTDRO 16:10 → 2NNU 16:33 → 2NENU 01-31 23:08
PROVIDERS: ADMIT Internal Medicine; ATTEND Hospitalist